=== PATIENT | female | born 1960 | race Caucasian/White ===

== ENCOUNTER → 2016-12-28 | Outpatient (CLI) | payer BC | END | disposition home or self-care (01) | LOC: C.PAPS 14:04 | PROVIDERS: ATTEND Obstetrics & Gynecology | DX: Z01.419 Encounter for gynecological examination (general) (routine) without abnormal findings (principal) ==

== ENCOUNTER → 2017-05-12 | Outpatient (CLI) | payer BC | END | disposition home or self-care (01) | LOC: C.MAMM 09:27 | PROVIDERS: ATTEND Obstetrics & Gynecology | DX: M81.0 Age-related osteoporosis without current pathological fracture (principal); M85.89 Other specified disorders of bone density and structure, multiple sites ==

== ENCOUNTER → 2017-07-06 | Outpatient (CLI) | payer BC ==
--- NOTE | 2017-07-06 14:41 | DIAGNOSTIC IMAGING REPORT ---
Thyroid ultrasonography CLINICAL HISTORY: GOITER, ASYMMETRICAL THYROID COMPARISON STUDY: No previous studies for comparison. FINDINGS: The right lobe of thyroid measures 56 x 15 x 19 mm. There are several tiny hypoechoic thyroid nodules, the largest of which measures 4 mm. The left lobe of thyroid measures 52 x 12 x 17 mm. There are multiple hypoechoic/cystic left lobe nodules, the largest of which measures 6 mm. There is a complex cystic nodule of the isthmus which measures 22 x 10 x 17 mm. In addition, there is an equivocal 9 x 5 mm circumscribed solid right isthmus nodule. IMPRESSION: Multinodular thyroid gland. The largest nodule is a complex cystic nodule of the isthmus measuring 22 x 10 x 17 mm. Electronically signed by: Justin Marino M.D. 07/06/2017 2:40 PM Dictated Date/Time: 07/06/2017 2:37 PM
== END ==
LOC: C.ULTR 14:14

== ENCOUNTER → 2017-07-11 | Outpatient (CLI) | payer BC ==
--- NOTE | 2017-07-11 13:54 | DIAGNOSTIC IMAGING REPORT ---
ULTRASOUND-GUIDED FINE-NEEDLE ASPIRATION OF A THYROID NODULE HISTORY: COMPLEX CYSTIC NODULES COMPARISON: Thyroid ultrasound 07/06/2017. PROCEDURE: Written informed consent was obtained. The neck was prepped and draped in the usual sterile fashion. 1% lidocaine was used for local anesthesia. A total of 1 pass using a 25-gauge needle was made through the 2.2 cm isthmic thyroid nodule under ultrasound guidance. This is followed by near complete drainage of the primarily cystic isthmic nodule with a 22-gauge needle. Specimens were given to the on-site pathologist who determined adequate tissue for diagnosis. The patient tolerated the procedure well. There were no immediate complications. The questionable 9 x 5 mm right isthmic nodule was not identified and was likely artifactual on the prior study. IMPRESSION: Successful ultrasound-guided fine-needle aspiration of an isthmic thyroid nodule. Electronically signed by: Glen Nielsen M.D. 07/11/2017 1:53 PM Dictated Date/Time: 07/11/2017 1:50 PM
== END | disposition home or self-care (01) ==
LOC: C.ULTR 12:34
DX: E04.1 Nontoxic single thyroid nodule (principal)

== ENCOUNTER → 2017-10-18 | Outpatient (CLI) | payer OTHER ==
--- NOTE | 2017-10-19 15:41 | MAMMOGRAPHY REPORT ---
BILATERAL DIGITAL SCREENING MAMMOGRAM TOMOSYNTHESIS WITH CAD: 10/18/2017 CLINICAL HISTORY: Routine screening. TECHNIQUE: Breast tomosynthesis in addition to standard 2D mammography was performed. Current study was also evaluated with a Computer Aided Detection (CAD) system. COMPARISON: Comparison is made to exams dated: 09/07/2016 mammogram, 09/02/2015 mammogram, 08/30/2014 mammogram, 08/29/2013 mammogram, 08/28/2012 mammogram, and 08/16/2011 mammogram - [facility]. BREAST COMPOSITION: The tissue of both breasts is heterogeneously dense, which may obscure small mas ses. FINDINGS: The parenchymal pattern is unchanged. No developing mass, architectural distortion or clus ter of suspicious microcalcifications is seen in either breast. IMPRESSION: ACR BI-RADS CATEGORY 2: BENIGN There is no mammographic evidence of malignancy. A 1 year screening mammogram is recommended. The pa tient will receive written notification of the results. Approximately 10% of breast cancers are not detected with mammography. A negative mammographic report should not delay biopsy if a clinically suggestive mass is present. Josie Gudino M.D. ay/:10/18/2017 16:59:16 Degreasing Solution Mixer: Burak ALSTON(R)(M), [facility] letter sent: Normal 1/2 BI-RADS Code: ACR BI-RADS Category 2: Benign
== END | disposition home or self-care (01) ==
LOC: C.MAMM 16:17
PROVIDERS: ATTEND Obstetrics & Gynecology
DX: Z12.31 Encounter for screening mammogram for malignant neoplasm of breast (principal)

== ENCOUNTER 2023-01-05 19:52 | Observation (INO) ==
--- NOTE | 2023-01-05 20:03 | Emergency Department Note ---
History of Present Illness General Chief complaint: Ankle Pain Stated complaint: FELL DOWN STAIRS, HURT BOTH ANKLES Time Seen by Provider: 01/05/23 20:00 History of Present Illness Maximum Pain Intensity: 7 This 62-year-old female patient presents to the emergency department with her for evaluation of bilateral ankle pain after she fell down 3 steps. She states that she rolled both ankles as she fell down the steps. She then landed on her left hip. However, she denies pain in her hip. She did not hit her head and no LOC. She is not on blood thinners. Unable to bear weight because of the pain. She rates her pain as sharp and 7/10. Denies headache, change in vision, dizziness, or change in her personality. Denies neck or back pain. Denies chest pain, SOB, abdominal pain, nausea, or vomiting. Has taken ibuprofen for the pain 45 min ago. She has a history of osteoporosis. Home Medications Medication Instructions Recorded Confirmed Type Bone Builder 620 mg PO BID 04/21/21 01/05/23 History albuterol sulfate 90 mcg/actuation 1 inh inhalation QID PRN SHORT OF 04/21/21 01/05/23 History aerosol inhaler BREATH ascorbic acid (vitamin C) 100 mg 400 mg PO BID 04/21/21 01/05/23 History tablet (Vitamin C) epinephrine 0.3 mg/0.3 mL 0.3 mg IM Q4H PRN Allergic Reaction 04/21/21 01/05/23 History injection, auto-injector lactobacillus comb no.10 20 20,000 mmu cells PO QAM 04/21/21 01/05/23 History billion cell capsule (Probiotic) magnesium citrate 100 mg tablet 600 mg PO QPM 04/21/21 01/05/23 History multivitamin 1 tab PO QAM 04/21/21 01/05/23 History Vitamin D3 & K 1 drp sublingual QAM 07/29/21 01/05/23 History estradiol 10 mcg vaginal tablet 10 mcg vaginal 2XWK 04/19/22 01/05/23 History (Vagifem) beclomethasone dipropionate 80 1 inh inhalation BID PRN Shortness 01/05/23 01/05/23 History mcg/actuation HFA breath activated Of Breath Or Wheezing aerosol (Qvar RediHaler) Allergies Allergy/AdvReac Type Severity Reaction Status Date / Time corn syrup Allergy Severe *dextrose Verified 01/05/23 23:17 --MIGRAINE/INTESTINAL PROBLEMS/ASTHMA SYMPTOMS latex Allergy Severe Anaphylaxis Verified 01/05/23 23:17 meperidine [From Demerol] Allergy Severe RASH/EXTREME Verified 01/05/23 23:17 MIGRAINE/THROAT CLOSES SOMETIMES morphine Allergy Severe RASH/EXTREME Verified 01/05/23 23:17 MIGRAINE/THROAT CLOSES SOMETIMES oxycodone Allergy Severe RASH/EXTREME Verified 01/05/23 23:17 MIGRAINE/THROAT CLOSES SOMETIMES polyethylene glycol Allergy Severe ANGIO Verified 01/05/23 23:17 EDEMA, BRONCHIAL SPASMS, HIVES [id number] Antimigraine Allergy Severe HIVES/THROAT Verified 01/05/23 23:17 Agents CLOSING dextrose Allergy Intermediate MIGRAINE/INTESTINAL Verified 01/05/23 23:17 PROBLEMS/ASTHMA SYMPTOMS midazolam [From Versed] Allergy Intermediate hives/RASH/ITCHING Verified 01/05/23 23:17 ALL OVER/SLOW TO WAKE UP mold Allergy Intermediate ASTHMA Verified 01/05/23 23:17 ATTACK nickel Allergy Intermediate ITCHING Verified 01/05/23 23:17 egg Allergy Abdominal Verified 01/06/23 05:39 Pain avocado AdvReac Intermediate INTESTINAL Verified 01/05/23 23:17 PROBLEMS fish derived AdvReac Intermediate INTESTINAL Verified 01/05/23 23:17 PROBLEMS soy AdvReac Intermediate INTESTINAL Verified 01/05/23 23:17 PROBLEMS venlafaxine [From Effexor] AdvReac Intermediate TROUBLE Verified 01/05/23 23:17 WALKING RUBBER Allergy Severe ASTHMA Uncoded 01/05/23 23:17 REACTION PLASTIC Allergy Mild SENSITIVE Uncoded 01/05/23 23:17 TO PLASTIC Past Med/Surg History Medical History Asthma LAST USED RESCUE INHALER SPRING 2020 Eczema Food intolerance History of anemia History of depression HSIL (high grade squamous intraepithelial lesion) on Pap smear of cervix Hypoglycemia Migraine Multiple allergies Multiple chemical sensitivity syndrome Osteoporosis OTF III (vulvar intraepithelial neoplasia III) Surgical History Family history of reaction to anesthesia NAUSEA History of anesthesia reaction SEE ALLERGIES/SLOW TO WAKE UP History of bilateral tubal ligation History of colonoscopy History of herniorrhaphy INGUINAL History of skin surgery LOCAL EXCISION VULVA (PRE-CANCEROUS) History of tooth extraction Torticollis REPAIRED X 2 (RT SIDE OF NECK STIFFNESS) Family History Family/Other Breast cancer Mother CHF (congestive heart failure) Macular degeneration Asthma Hypertension Father Atrial fibrillation Prostate cancer Multiple myeloma Asthma Dyslipidemia Sister Asthma Other No significant family history Denies family history of Ovarian cancer Myocardial infarction Colorectal cancer Social History Smoking Status: Never smoker Age Started Using Tobacco: 13; Second Hand Exposure: No; Do You Dip or Chew Tobacco: No; Tobacco Cessation Education Requested by Patient: No Hx Alcohol Use: No Hx Substance Use: No Preferred Language: Cambodian Communication Ability: Effective 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 Physical Exam Vital Signs Vital Signs - 24 hr 01/05/23 19:57 01/06/23 00:00 01/06/23 02:00 Temperature 36.4 C L Temperature Source Temporal Artery Scan Pulse Rate 78 Pulse Rate [Right Finger] 76 74 Respiratory Rate 18 14 14 Respiratory Effort / Characteristics Non-Labored Spontaneous Non-Labored Spontaneous Respiratory Depth Normal Normal Normal Respiratory Pattern Regular Regular Blood Pressure 130/77 Blood Pressure [Right Arm] 144/86 H 132/87 Blood Pressure Mean 94 Blood Pressure Mean [Right Arm] 105 102 Pulse Oximetry 100 98 98 Oxygen Delivery Method Room Air Room Air Room Air Sepsis Recent Fever Within 48 Hours No Sepsis New/Unexplained Change in Mental Status No Sepsis Action Taken by Nursing No Action Required VITALS: Vitals are noted on the nurse's note and reviewed by myself. GENERAL: Non toxic, no acute distress, non-diaphoretic. SKIN: No obvious lacerations or abrasions. Capillary refill <2 sec. EYES: PERRLA. EOMI. Conjunctivae without injection, sclerae without icterus. NOSE: Patent without discharge. MOUTH: Mucous membranes moist. Uvula midline. Airway patent. NECK: Supple without nuchal rigidity. No cervical spine tenderness. Full range of motion of the neck without pain. HEART: Regular rate and rhythm without murmurs gallops or rubs. LUNGS: Clear to auscultation bilaterally without wheezes, rales or rhonchi. No retractions or accessory muscle use. CHEST: No tenderness to palpation. ABDOMEN: Positive bowel sounds x 4. Normal tympanic percussion. Soft, nontender, without masses or organomegaly. Anders sign negative. No guarding or rebound tenderness. No focal RLQ or LLQ tenderness. MUSCULOSKELETAL: Minimal tenderness to the lateral aspect of the left hip, but full range of motion of the left hip with minimal pain. No tenderness with pelvic rocking. The patient has significant edema and tenderness to palpation over the medial and lateral malleolus bilaterally. No tenderness to palpation of the base of the fifth metatarsal on either foot. No tenderness to palpation over the remainder of the bilateral feet. No tenderness to palpation of the bilateral tib-fibs, knees, or femur. No tenderness to palpation of the right hip. No tenderness of the thoracic or lumbar spine. Full range of motion without tenderness to palpation of the bilateral upper extremities. Dorsalis pedis and posterior tibial pulse 2+. NEURO: Patient was alert and oriented to person place and time. Normal sensation to light and sharp touch of the bilateral lower extremities. No focal neurological deficits. Course Administered Medications Ascorbic Acid (Ascorbic Acid 500 Mg Tab) 500 mg PO BID [facility] Stop: 02/05/23 08:59 Last Admin: 01/06/23 07:53 Dose: 500 mg Documented By: HANNAH Ibuprofen (Ibuprofen 200 Mg Tab) 400 mg PO QID PRN PRN Reason: Moderate Pain (Scale 4, 5, 6) Stop: 02/05/23 01:37 Last Admin: 01/06/23 10:16 Dose: 400 mg Documented By: Admin: 01/06/23 02:05 Dose: 400 mg Documented By: MADELEINE Lactobacillus Acidophilus (Advanced Probiotic 1250 Mg Capsule) 2 cap PO QAM [facility] Stop: 02/05/23 08:59 Last Admin: 01/06/23 07:53 Dose: 2 cap Documented By: HANNAH Miscellaneous (Estradiol [Vagifem]: Order Awaiting Action) 1 each N/A DAILY [facility] Stop: 02/05/23 08:59 Last Admin: 01/06/23 08:04 Dose: Not Given Documented By: HANNAH Multivitamins (Multivitamin Tab) 1 tab PO QAM [facility] Stop: 02/05/23 08:59 Last Admin: 01/06/23 07:53 Dose: 1 tab Documented By: HANNAH Discontinued Medications Acetaminophen (Acetaminophen 500 Mg Tab) 500 mg PO NOW STA Stop: 01/05/23 20:12 Last Admin: 01/05/23 20:19 Dose: 500 mg Documented By: SAM Medical Decision Making Differential Diagnosis Differential diagnosis includes fracture, dislocation, subluxation, contusion, intracranial injury, neurologic, as well as other pathologies. Laboratory Data Attestation: I reviewed the patient's lab results. 01/06/23 00:19 01/06/23 00:19 Lab Results 01/05/23 01/06/23 01/06/23 Range/Units 23:10 00:19 00:19 WBC 7.97 (4.8-10.8) K/ul RBC 4.60 (4.20-5.40) M/uL Hgb 13.9 (12.0-16.0) g/dl Hct 40.8 (37.0-47.0) % MCV 88.7 (80.0-100.0) fL MCH 30.2 (25.0-34.0) pg MCHC 34.1 (32.0-36.0) g/dL RDW Std Deviation 42.1 (36.4-46.3) fL RDW Coeff of Zain 12.9 (11.5-14.5) % Plt Count 227 (130-400) K/uL MPV 9.8 (9.4-12.4) fL Immature Gran % (Auto) 0.3 % Neut % (Auto) 75.0 % Lymph % (Auto) 15.2 % [place] % (Auto) 7.4 % Eos % (Auto) 1.6 % Baso % (Auto) 0.5 % Neut # (Auto) 5.98 (1.40-6.50) K/uL Lymph # (Auto) 1.21 (1.2-3.4) K/uL [place] # (Auto) 0.59 (0.11-0.59) K/uL Eos # (Auto) 0.13 (0-0.50) K/uL Baso # (Auto) 0.04 (0-0.2) K/uL Immature Gran # (Auto) 0.02 (0.01-0.20) K/uL Sodium 137 (136-145) mmol/L Potassium TNP Chloride 103 (98-107) mmol/L Carbon Dioxide 25 (21-32) mmol/L Anion Gap 9 (3-11) BUN 21 (6-23) mg/dl Creatinine 0.68 (0.6-1.2) mg/dl Est Cr Clr Drug Dosing 90.4 ml/min Est GFR ( Amer) 107.1 ml/min Est GFR (Non-Af Amer) 92.4 ml/min BUN/Creatinine Ratio 30.9 H (10-20) Glucose 119 H (70-99(Fasting)) mg/dl Calcium 9.2 (8.6-10.3) mg/dl Total Bilirubin 0.5 (0.2-1.0) mg/dl AST TNP ALT 17 (7-52) U/L Alkaline Phosphatase 63 (34-104) U/L Total Protein 6.8 (6.0-8.3) gm/dl Albumin 4.3 (3.4-5.0) gm/dl Globulin 2.5 (2.5-4.0) gm/dl Albumin/Globulin Ratio 1.7 (0.9-2) Urine Color Urine Appearance (Clear) Urine pH (4.5-7.5) Ur Specific [place] (1.000-1.030) Urine Protein (Negative) Urine Glucose (UA) (Negative) Urine Ketones (Negative) Urine Blood (Negative) Urine Nitrite (Negative) Urine Bilirubin (Negative) Urine Urobilinogen (Negative) Ur Leukocyte Esterase (Negative) Urine WBC (Auto) (0-5) /hpf Urine RBC (Auto) (0-4) /hpf U Hyaline Cast (Auto) (0-5) /lpf U Epithel Cells (Auto) (0-5) /lpf Urine Bacteria (Auto) (Negative) SARS-CoV-2, RNA, NAAT NEGATIVE (NEGATIVE) 01/06/23 01/06/23 Range/Units 01:30 02:15 WBC (4.8-10.8) K/ul RBC (4.20-5.40) M/uL Hgb (12.0-16.0) g/dl Hct (37.0-47.0) % MCV (80.0-100.0) fL MCH (25.0-34.0) pg MCHC (32.0-36.0) g/dL RDW Std Deviation (36.4-46.3) fL RDW Coeff of Zain (11.5-14.5) % Plt Count (130-400) K/uL MPV (9.4-12.4) fL Immature Gran % (Auto) % Neut % (Auto) % Lymph % (Auto) % [place] % (Auto) % Eos % (Auto) % Baso % (Auto) % Neut # (Auto) (1.40-6.50) K/uL Lymph # (Auto) (1.2-3.4) K/uL [place] # (Auto) (0.11-0.59) K/uL Eos # (Auto) (0-0.50) K/uL Baso # (Auto) (0-0.2) K/uL Immature Gran # (Auto) (0.01-0.20) K/uL Sodium (136-145) mmol/L Potassium 3.9 Chloride (98-107) mmol/L Carbon Dioxide (21-32) mmol/L Anion Gap (3-11) BUN (6-23) mg/dl Creatinine (0.6-1.2) mg/dl Est Cr Clr Drug Dosing ml/min Est GFR ( Amer) ml/min Est GFR (Non-Af Amer) ml/min BUN/Creatinine Ratio (10-20) Glucose (70-99(Fasting)) mg/dl Calcium (8.6-10.3) mg/dl Total Bilirubin (0.2-1.0) mg/dl AST 17 ALT (7-52) U/L Alkaline Phosphatase (34-104) U/L Total Protein (6.0-8.3) gm/dl Albumin (3.4-5.0) gm/dl Globulin (2.5-4.0) gm/dl Albumin/Globulin Ratio (0.9-2) Urine Color Yellow Urine Appearance Clear (Clear) Urine pH 5.5 (4.5-7.5) Ur Specific [place] 1.006 (1.000-1.030) Urine Protein Negative (Negative) Urine Glucose (UA) Negative (Negative) Urine Ketones Negative (Negative) Urine Blood Negative (Negative) Urine Nitrite Negative (Negative) Urine Bilirubin Negative (Negative) Urine Urobilinogen Negative (Negative) Ur Leukocyte Esterase Trace H (Negative) Urine WBC (Auto) 1-5 (0-5) /hpf Urine RBC (Auto) 0-4 (0-4) /hpf U Hyaline Cast (Auto) 0 (0-5) /lpf U Epithel Cells (Auto) 5-10 H (0-5) /lpf Urine Bacteria (Auto) Negative (Negative) SARS-CoV-2, RNA, NAAT (NEGATIVE) Imaging Data Radiologist's Impression: Ankle X-Ray 01/05/23 20:10 LEFT ANKLE 3 VIEWS CLINICAL HISTORY: Left ankle injury. FINDINGS: 3 views of the left ankle are obtained. No prior studies are available for comparison at the time of dictation. The skeletal structures are osteopenic. There is a mildly displaced horizontal fracture through the lateral malleolus with overlying soft tissue edema. An avulsion fracture is see along the anterior aspect of the tibial plafond. No additional acute fracture is identified. The ankle mortise is maintained. There is a joint effusion. A large plantar heel spur is noted. IMPRESSION: Distal tibial and fibular fractures as above with overlying soft tissue edema and associated joint effusion. Electronically signed by: Dereck Castaneda M.D. 01/05/2023 9:11 PM Ankle X-Ray 01/05/23 20:10 RIGHT ANKLE 3 VIEWS CLINICAL HISTORY: Trauma. FINDINGS: 3 views of the right ankle are obtained. No prior studies are available for comparison at the time of dictation. The skeletal structures are osteopenic. There is a mildly displaced spiral fracture of the distal fibula. Overlying soft tissue edema is noted. No additional acute fracture is seen at the ankle joint. The ankle mortise is intact. There is a joint effusion and overlying soft tissue edema. A large plantar heel spur is noted. IMPRESSION: Distal fibular fracture as above. Electronically signed by: Dereck Castaneda M.D. 01/05/2023 9:12 PM Hip/Pelvis X-Ray 01/05/23 20:10 SINGLE VIEW PELVIS; 2 VIEWS LEFT HIP CLINICAL HISTORY: Trauma. FINDINGS: An AP supine view of the pelvis with AP and frog-leg views of the left hip are obtained. No prior studies are available for comparison at the time of dictation. The skeletal structures are osteopenic. There is no radiographic evidence of acute fracture involving the hips or bony pelvis. Minimal degenerative change is seen in the hips. There is degenerative sclerosis within the sacroiliac joints and pubic symphysis. The overlying soft tissues are within normal limits. Phleboliths are noted in the pelvis. Moderate fecal retention is noted throughout the imaged colon. IMPRESSION: No acute bony abnormality is identified. Electronically signed by: Dereck Castaneda M.D. 01/05/2023 9:04 PM MDM Narrative I examined the patient. The patient was given Tylenol 500 mg p.o. for pain since she has multiple chemical sensitivity syndrome and does not do well with most pain medications or high doses of medication. She had already taken ibuprofen at home prior to arrival. X-rays were interpreted by myself and read by radiology as above. X-rays of the left hip and pelvis were negative for acute fracture or dislocation. X-rays of the right ankle showed a mildly displaced spiral fracture of the distal fibula. X-rays of the left ankle showed a mildly displaced horizontal fracture through the lateral malleolus with overlying soft tissue edema as well as an avulsion fracture along the anterior aspect of the tibial plafond. Definitive fracture care performed by myself. The patient wanted to attempt to be discharged home. Therefore, a high-top fracture boot was placed on the right lower extremity under my direction and a posterior and sugar-tong Ortho-Glass splint was placed on the left lower extremity under my direction. Neurovascular status was rechecked and intact. The patient is unable to manage crutches due to her age and balance concerns. We attempted a walker with light weightbearing on the right lower extremity, but the patient was unable to safely use the walker and admitted to increased pain with any weightbearing on the right lower extremity. I spoke with case management and we were unable to get a wheelchair for home tonight. The patient and her also state that they have no one that can come help them at home to get her into the house or ambulate around the house. The patient does have stairs to get into the house as well as stairs at home. Therefore, the patient is not safe to be discharged home when she is unable to ambulate with available options. I spoke with the on-call hospitalist who agreed to admit the patient for further management. Please refer to their dictation for further details. An IV lock was placed and labs were drawn. CBC was normal. CMP with a glucose of 119, but otherwise unremarkable. COVID was negative. The patient was admitted in stable condition. Impression & Plan Fracture of tibia with fibula, left, closed, Fracture of fibula, distal, right, closed, Osteoporosis Discharge Plan Visit Data Chief Complaint: Ankle Pain Stated Complaint: FELL DOWN STAIRS, HURT BOTH ANKLES ED Provider: Dereck Carpenter ED Midlevel Provider: Mitali Ruiz Discharge Problem: Fracture of tibia with fibula, left, closed, Fracture of fibula, distal, right, closed, Osteoporosis Patient Disposition: Admitted As Inpatient Condition: Good Discharge Instructions Interventions: ED Discharge Assessment Last Done: 01/06/23 04:13
[2023-01-05] MEDS ORDERED: ACETAMINOPHEN 500 MG TAB PO STA (20:11)
--- NOTE | 2023-01-05 21:05 | XRay Report ---
SINGLE VIEW PELVIS; 2 VIEWS LEFT HIP CLINICAL HISTORY: Trauma. FINDINGS: An AP supine view of the pelvis with AP and frog-leg views of the left hip are obtained. No prior studies are available for comparison at the time of dictation. The skeletal structures are ost eopenic. There is no radiographic evidence of acute fracture involving the hips or bony pelvis. Minim al degenerative change is seen in the hips. There is degenerative sclerosis within the sacroiliac praveen nts and pubic symphysis. The overlying soft tissues are within normal limits. Phleboliths are noted i n the pelvis. Moderate fecal retention is noted throughout the imaged colon. IMPRESSION: No acute bony abnormality is identified. Electronically signed by: Dereck Castaneda M.D. 01/05/2023 9:04 PM
--- NOTE | 2023-01-05 21:12 | XRay Report ---
LEFT ANKLE 3 VIEWS CLINICAL HISTORY: Left ankle injury. FINDINGS: 3 views of the left ankle are obtained. No prior studies are available for comparison at th e time of dictation. The skeletal structures are osteopenic. There is a mildly displaced horizontal f racture through the lateral malleolus with overlying soft tissue edema. An avulsion fracture is see a long the anterior aspect of the tibial plafond. No additional acute fracture is identified. The ankle mortise is maintained. There is a joint effusion. A large plantar heel spur is noted. IMPRESSION: Distal tibial and fibular fractures as above with overlying soft tissue edema and associ ated joint effusion. Electronically signed by: Dereck Castandea M.D. 01/05/2023 9:11 PM
--- NOTE | 2023-01-05 21:14 | XRay Report ---
RIGHT ANKLE 3 VIEWS CLINICAL HISTORY: Trauma. FINDINGS: 3 views of the right ankle are obtained. No prior studies are available for comparison at t he time of dictation. The skeletal structures are osteopenic. There is a mildly displaced spiral frac ture of the distal fibula. Overlying soft tissue edema is noted. No additional acute fracture is seen at the ankle joint. The ankle mortise is intact. There is a joint effusion and overlying soft tissue edema. A large plantar heel spur is noted. IMPRESSION: Distal fibular fracture as above. Electronically signed by: Dereck Castaneda M.D. 01/05/2023 9:12 PM
[2023-01-06 00:45] LABS: Basophils # (auto) 0.04 K/uL (0-0.2); Basophils % (auto) 0.5 %; Eosinophils # (auto) 0.13 K/uL (0-0.50); Eosinophils % (auto) 1.6 %; Hematocrit (blood only) 40.8 % (37.0-47.0); Hemoglobin 13.9 g/dl (12.0-16.0); Immature Granulocytes # (auto) 0.02 K/uL (0.01-0.20); Immature Granulocytes % (auto) 0.3 %; Lymphocytes # (auto) 1.21 K/uL (1.2-3.4); Lymphocytes % (auto) 15.2 %; Mean Corpuscular Hemoglobin 30.2 pg (25.0-34.0); Mean Corpuscular Hgb Conc 34.1 g/dL (32.0-36.0); Mean Corpuscular Volume 88.7 fL (80.0-100.0); Mean Platelet Volume 9.8 fL (9.4-12.4); Monocytes # (auto) 0.59 K/uL (0.11-0.59); Monocytes % (auto) 7.4 %; Neutrophils # (auto) 5.98 K/uL (1.40-6.50); Platelet Count 227 K/uL (130-400); RDW Coefficient of Variation 12.9 % (11.5-14.5); RDW Standard Deviation 42.1 fL (36.4-46.3); White Blood Count 7.97 K/ul (4.8-10.8)
[2023-01-06 01:22] LABS: Alanine Aminotransferase 17 U/L (7-52); Albumin Globulin Ratio 1.7 (0.9-2); Albumin Level 4.3 gm/dl (3.4-5.0); Alkaline Phosphatase 63 U/L (34-104); Anion Gap 9 (3-11); BUN Creatinine Ratio 30.9 (10-20); Bilirubin,Total 0.5 mg/dl (0.2-1.0); Blood Urea Nitrogen 21 mg/dl (6-23); Calcium 9.2 mg/dl (8.6-10.3); Carbon Dioxide 25 mmol/L (21-32); Chloride 103 mmol/L (98-107); Creatinine Clr Calc Pharmacy 90.4 ml/min; Est GFR (African American) 107.1 ml/min; Est GFR (Non-African American) 92.4 ml/min; Globulin 2.5 gm/dl (2.5-4.0); Glucose 119 mg/dl (70-99(Fasting)); Sodium 137 mmol/L (136-145); Total Protein 6.8 gm/dl (6.0-8.3)
[2023-01-06 02:00] LABS: Potassium 3.9 mmol/L (3.5-5.1)
[2023-01-06] MEDS: IBUPROFEN 200 MG TAB PO PRN ×3 (02:05→17:28)
--- NOTE | 2023-01-06 02:17 | History & Physical Report ---
Date of Service January 06, 2023 Assessment & Plan (1) Fracture of tibia with fibula, left, closed: (2) Fracture of fibula, distal, right, closed: (3) Osteoporosis: (4) Multiple chemical sensitivity syndrome: (5) Asthma: Plan Closed fracture of right distal fibula/closed fracture of left distal fibula/fibula- Status post mechanical fall We will consult orthopedic surgery, not anticipating surgery shared services manager may need to help with determining what kind of services patient may be qualified for at home Acetaminophen 650 mg by mouth every 6 hours as needed for mild pain or fever Ibuprofen 400 mg p.o. 4 times daily as needed for moderate pain Patient has developed hives to morphine in the past, will therefore limit any narcotic agents at this point We will consult Dr. Biswas in the morning, to see if she might tolerate something like tramadol for more severe pain Anticipate patient to have significant issues with ambulation at home with bilateral ankle fractures Multiple chemical sensitivity syndrome- Would attempt to call Dr. Biswas's office during the day to get recommendations regarding possible pain medications patient may be able to use with history of hives to morphine History of Present Illness Chief Complaint: The patient presents to the emergency department with bilateral ankle pain after a mechanical fall where she fell down 3 steps and rolled her ankle that she landed. The patient denies any previous symptoms leading up to the fall, stating that she misjudged where she was on the steps, being close to the edge of the steps than she thought, and stepped over into a space where there were no steps Primary Care Provider: Bruna Amor MD The patient is a 62-year-old female with past medical history including HSIL, osteoporosis, OTF 3, asthma, and multiple chemical sensitivity syndrome. The patient presents to the emergency department due to a mechanical fall in which she misjudged where she was on steps, and stepped off into a space where there were no steps, dropping 3 steps in height rolling her ankles and sustaining immediate pain bilateral ankles. X-rays in the emergency department revealed a left ankle distal tib/fib fracture, and right ankle distal fib fracture. Allergies Allergy/AdvReac Type Severity Reaction Status Date / Time corn syrup Allergy Severe *dextrose Verified 01/05/23 23:17 --MIGRAINE/INTESTINAL PROBLEMS/ASTHMA SYMPTOMS latex Allergy Severe Anaphylaxis Verified 01/05/23 23:17 meperidine [From Demerol] Allergy Severe RASH/EXTREME Verified 01/05/23 23:17 MIGRAINE/THROAT CLOSES SOMETIMES morphine Allergy Severe RASH/EXTREME Verified 01/05/23 23:17 MIGRAINE/THROAT CLOSES SOMETIMES oxycodone Allergy Severe RASH/EXTREME Verified 01/05/23 23:17 MIGRAINE/THROAT CLOSES SOMETIMES polyethylene glycol Allergy Severe ANGIO Verified 01/05/23 23:17 EDEMA, BRONCHIAL SPASMS, HIVES [id number] Antimigraine Allergy Severe HIVES/THROAT Verified 01/05/23 23:17 Agents CLOSING dextrose Allergy Intermediate MIGRAINE/INTESTINAL Verified 01/05/23 23:17 PROBLEMS/ASTHMA SYMPTOMS midazolam [From Versed] Allergy Intermediate hives/RASH/ITCHING Verified 01/05/23 23:17 ALL OVER/SLOW TO WAKE UP mold Allergy Intermediate ASTHMA Verified 01/05/23 23:17 ATTACK nickel Allergy Intermediate ITCHING Verified 01/05/23 23:17 avocado AdvReac Intermediate INTESTINAL Verified 01/05/23 23:17 PROBLEMS fish derived AdvReac Intermediate INTESTINAL Verified 01/05/23 23:17 PROBLEMS soy AdvReac Intermediate INTESTINAL Verified 01/05/23 23:17 PROBLEMS venlafaxine [From Effexor] AdvReac Intermediate TROUBLE Verified 01/05/23 23:17 WALKING RUBBER Allergy Severe ASTHMA Uncoded 01/05/23 23:17 REACTION PLASTIC Allergy Mild SENSITIVE Uncoded 01/05/23 23:17 TO PLASTIC Home Medications Medication Instructions Recorded Confirmed Type Bone Builder 620 mg PO BID 04/21/21 01/05/23 History albuterol sulfate 90 mcg/actuation 1 inh inhalation QID PRN SHORT OF 04/21/21 01/05/23 History aerosol inhaler BREATH ascorbic acid (vitamin C) 100 mg 400 mg PO BID 04/21/21 01/05/23 History tablet (Vitamin C) epinephrine 0.3 mg/0.3 mL 0.3 mg IM Q4H PRN Allergic Reaction 04/21/21 01/05/23 History injection, auto-injector lactobacillus comb no.10 20 20,000 mmu cells PO QAM 04/21/21 01/05/23 History billion cell capsule (Probiotic) magnesium citrate 100 mg tablet 600 mg PO QPM 04/21/21 01/05/23 History multivitamin 1 tab PO QAM 04/21/21 01/05/23 History Vitamin D3 & K 1 drp sublingual QAM 07/29/21 01/05/23 History estradiol 10 mcg vaginal tablet 10 mcg vaginal 2XWK 04/19/22 01/05/23 History (Vagifem) beclomethasone dipropionate 80 1 inh inhalation BID PRN Shortness 01/05/23 01/05/23 History mcg/actuation HFA breath activated Of Breath Or Wheezing aerosol (Qvar RediHaler) Past Med/Surg History Medical History Asthma LAST USED RESCUE INHALER SPRING 2020 Eczema Food intolerance History of anemia History of depression HSIL (high grade squamous intraepithelial lesion) on Pap smear of cervix Hypoglycemia Migraine Multiple allergies Multiple chemical sensitivity syndrome Osteoporosis OTF III (vulvar intraepithelial neoplasia III) Surgical History Family history of reaction to anesthesia NAUSEA History of anesthesia reaction SEE ALLERGIES/SLOW TO WAKE UP History of bilateral tubal ligation History of colonoscopy History of herniorrhaphy INGUINAL History of skin surgery LOCAL EXCISION VULVA (PRE-CANCEROUS) History of tooth extraction Torticollis REPAIRED X 2 (RT SIDE OF NECK STIFFNESS) Family History Family/Other Breast cancer Mother CHF (congestive heart failure) Macular degeneration Asthma Hypertension Father Atrial fibrillation Prostate cancer Multiple myeloma Asthma Dyslipidemia Sister Asthma Other No significant family history Denies family history of Ovarian cancer Myocardial infarction Colorectal cancer Social History Smoking Status: Former smoker Age Started Using Tobacco: 13; Second Hand Exposure: No; Hx Alcohol Use: No Hx Substance Use: No Preferred Language: [place] Communication Ability: Effective Labor Economics Teacher Required: No Beliefs That Will Affect Care: None marital status: Current Living Situation: Spouse current occupational status: retired Feels Safe at Home: Yes Childhood Exposure to Second-Hand Smoke: No Dental Care, Regularly: Yes Physical Activity Frequency: 3-4 Times per Week Seatbelt Use: always Sunscreen Use: Yes Assistive Devices: Glasses Review of Systems Review of Systems: The patient denies chest pain, palpitations, shortness of breath, dyspnea on exertion, cough, lower extremity swelling, sore throat, fevers, chills, sweats, weight change, fatigue, nausea, vomiting, diarrhea , constipation, abdominal pain, pelvic pain, blood in urine or stool, dysuria, urinary frequency or urgency, lightheadedness, dizziness, headache, memory loss, loss of consciousness, rash, abnormal bruising or bleeding, imbalance, focal or generalized weakness, numbness or tingling in arms, generalized arthralgias or myalgias, neck pain, or night sweats. The review of systems is otherwise negative other than for that already noted above, and at least 10 systems have been reviewed. Physical Exam Physical Exam: The patient is awake, alert and oriented 3, well developed and well nourished, normocephalic and atraumatic, lying in bed and in no acute distress. HEENT--PERRL, EOMI, mucous membranes and oropharynx dry. Neck--supple. No JVD. No bruits. Thyroid normal, trachea midline, no adenopathy. Heart--normal S1 and S2. No murmurs, rubs or gallops. Lungs--clear bilaterally, no respiratory distress, no accessory muscle use. Abdomen--normal bowel sounds and soft. Nontender. Nondistended, no hernias or masses, no organomegaly. Extremities--no cyanosis or clubbing. No edema. Dermatologic--normal skin turgor, normal color, no abnormal lymph nodes, no rash. Neurologic--cranial nerves II through XII grossly intact. Rheumatologic--lower extremity exam limited due to wrapping for stabilization Psychiatric--normal affect. Results & Data Results & Data Vital Signs (Past 12 Hours) Vital Signs Temp Pulse Resp BP Pulse Ox O2 Del Method 01/05/23 19:57 36.4 C L 78 18 130/77 100 Room Air Laboratory Results Laboratory Results WBC 7.97 K/ul (4.8-10.8) 01/06/23 00:19 RBC 4.60 M/uL (4.20-5.40) 01/06/23 00:19 Hgb 13.9 g/dl (12.0-16.0) 01/06/23 00:19 Hct 40.8 % (37.0-47.0) 01/06/23 00:19 MCV 88.7 fL (80.0-100.0) 01/06/23 00:19 MCH 30.2 pg (25.0-34.0) 01/06/23 00: MCHC 34.1 g/dL (32.0-36.0) 01/06/23 00:19 RDW Std Deviation 42.1 fL (36.4-46.3) 01/06/23 00: RDW Coeff of Zain 12.9 % (11.5-14.5) 01/06/23 00:19 Plt Count 227 K/uL (130-400) 01/06/23 00:19 MPV 9.8 fL (9.4-12.4) 01/06/23 00:19 Immature Gran % (Auto) 0.3 % 01/06/23 00: Neut % (Auto) 75.0 % 01/06/23 00:19 Lymph % (Auto) 15.2 % 01/06/23 00:19 [place] % (Auto) 7.4 % 01/06/23 00:19 Eos % (Auto) 1.6 % 01/06/23 00:19 Baso % (Auto) 0.5 % 01/06/23 00:19 Neut # (Auto) 5.98 K/uL (1.40-6.50) 01/06/23 00:19 Lymph # (Auto) 1.21 K/uL (1.2-3.4) 01/06/23 00:19 [place] # (Auto) 0.59 K/uL (0.11-0.59) 01/06/23 00:19 Eos # (Auto) 0.13 K/uL (0-0.50) 01/06/23 00:19 Baso # (Auto) 0.04 K/uL (0-0.2) 01/06/23 00:19 Immature Gran # (Auto) 0.02 K/uL (0.01-0.20) 01/06/23 00:19 Sodium 137 mmol/L (136-145) 01/06/23 00:19 Potassium 3.9 mmol/L (3.5-5.1) 01/06/23 01:30 Chloride 103 mmol/L (98-107) 01/06/23 00:19 Carbon Dioxide 25 mmol/L (21-32) 01/06/23 00:19 Anion Gap 9 (3-11) 01/06/23 00:19 BUN 21 mg/dl (6-23) 01/06/23 00:19 Creatinine 0.68 mg/dl (0.6-1.2) 01/06/23 00:19 Est Cr Clr Drug Dosing 90.4 ml/min 01/06/23 00:19 Est GFR ( Amer) 107.1 ml/min 01/06/23 00:19 Est GFR (Non-Af Amer) 92.4 ml/min 01/06/23 00:19 BUN/Creatinine Ratio 30.9 (10-20) H 01/06/23 00:19 Glucose 119 mg/dl (70-99(Fasting)) H 01/06/23 00:19 Calcium 9.2 mg/dl (8.6-10.3) 01/06/23 00:19 Total Bilirubin 0.5 mg/dl (0.2-1.0) 01/06/23 00:19 AST 17 U/L (13-39) 01/06/23 01:30 ALT 17 U/L (7-52) 01/06/23 00:19 Alkaline Phosphatase 63 U/L (34-104) 01/06/23 00:19 Total Protein 6.8 gm/dl (6.0-8.3) 01/06/23 00:19 Albumin 4.3 gm/dl (3.4-5.0) 01/06/23 00:19 Globulin 2.5 gm/dl (2.5-4.0) 01/06/23 00:19 Albumin/Globulin Ratio 1.7 (0.9-2) 01/06/23 00:19 Urine Color Yellow 01/06/23 02:15 Urine Appearance Clear (Clear) 01/06/23 02:15 Urine pH 5.5 (4.5-7.5) 01/06/23 02:15 Ur Specific [place] 1.006 (1.000-1.030) 01/06/23 02:15 Urine Protein Negative (Negative) 01/06/23 02:15 Urine Glucose (UA) Negative (Negative) 01/06/23 02:15 Urine Ketones Negative (Negative) 01/06/23 02:15 Urine Blood Negative (Negative) 01/06/23 02:15 Urine Nitrite Negative (Negative) 01/06/23 02:15 Urine Bilirubin Negative (Negative) 01/06/23 02:15 Urine Urobilinogen Negative (Negative) 01/06/23 02:15 Ur Leukocyte Esterase Trace (Negative) H 01/06/23 02:15 Urine WBC (Auto) 1-5 /hpf (0-5) 01/06/23 02:15 Urine RBC (Auto) 0-4 /hpf (0-4) 01/06/23 02:15 U Hyaline Cast (Auto) 0 /lpf (0-5) 01/06/23 02:15 U Epithel Cells (Auto) 5-10 /lpf (0-5) H 01/06/23 02:15 Urine Bacteria (Auto) Negative (Negative) 01/06/23 02:15 SARS-CoV-2, RNA, NAAT NEGATIVE (NEGATIVE) 01/05/23 23:10 Impressions Ankle X-Ray 01/05/23 20:10 RIGHT ANKLE 3 VIEWS CLINICAL HISTORY: Trauma. FINDINGS: 3 views of the right ankle are obtained. No prior studies are available for comparison at the time of dictation. The skeletal structures are osteopenic. There is a mildly displaced spiral fracture of the distal fibula. O verlying soft tissue edema is noted. No additional acute fracture is seen at the ankle joint. The ankle mortise is intact. There is a joint effusion and overlying soft tissue edema. A large plantar heel spur is noted. IMPRESSION: Distal fibular fracture as above. Electronically signed by: Dereck Castaneda M.D. 01/05/2023 9:12 PM Hip/Pelvis X-Ray 01/05/23 20:10 SINGLE VIEW PELVIS; 2 VIEWS LEFT HIP CLINICAL HISTORY: Trauma. FINDINGS: An AP supine view of the pelvis with AP and frog-leg views of the left hip are obtained. No prior studies are available for comparison at the time of dictation. The skeletal structures are osteopenic. There is no radiographic evidence of acute fracture involving the hips or bony pelvis. Minimal degenerative change is seen in the hips. There is degenerative sclerosis within the sacroiliac joints and pubic symphysis. The overlying soft tissues are within normal limits. Phleboliths are noted in the pelvis. Moderate fecal retention is noted throughout the imaged colon. IMPRESSION: No acute bony abnormality is identified. Electronically signed by: Dereck Castaneda M.D. 01/05/2023 9:04 PM Code Status & VTE Plan Code Status Full code VTE Prophylaxis Plan VTE Prophylaxis will be ordered: Yes PG Care Time/CCT Total # of Minutes Spent Total Time Spent with Patient: Total time spent is greater than 50% in coordination of care (as documented) at patient's floor/unit and/or counseling patient: Coding Level of Care Code 64754 INT INP/OBS CARE 2/55MIN Diagnoses Fracture of tibia with fibula, left, closed S82.202A; S82.402A Fracture of fibula, distal, right, closed S82.831A Osteoporosis M81.0 Multiple chemical sensitivity syndrome T78.40XA Asthma J45.909
[2023-01-06 02:34] LABS: Appearance Urine Clear (Clear); Bacteria Urine Automated Negative (Negative); Bilirubin Urine Negative (Negative); Blood Urine Negative (Negative); Cast Urine Automated 0 /lpf (0-5); Color Urine Yellow; Glucose Urine UA Negative (Negative); Ketones Urine Negative (Negative); Leukocyte Esterase Urine Trace (Negative); Nitrite Urine Negative (Negative); Protein Urine Negative (Negative); RBC Urine Automated 0-4 /hpf (0-4); Specific Gravity Urine 1.006 (1.000-1.030); Urobilinogen Urine Negative (Negative); pH Urine 5.5 (4.5-7.5)
[2023-01-06] MEDS ORDERED: ALBUTEROL HFA 8 GM INHALER INH PRN (04:24)
[2023-01-06] MEDS ORDERED: FLUTICASONE FUROATE 100MCG 14 PUFFS/INHALER INH PRN (04:36)
[2023-01-06] MEDS: ADVANCED PROBIOTIC 1250 MG CAPSULE PO SCH (07:53)
[2023-01-06] MEDS: MULTIVITAMIN TAB PO SCH (07:53)
[2023-01-06] MEDS: ASCORBIC ACID 500 MG TAB PO SCH ×2 (07:53→21:45)
--- NOTE | 2023-01-06 08:30 | Hospitalist Progress Note ---
Date of Service January 06, 2023 Assessment & Plan (1) Fracture of tibia with fibula, left, closed: Plan: Closed fracture of right distal fibula/closed fracture of left distal fibula/fibula- Status post mechanical fall Consult placed with orthopedic surgery and recommend - Splint for initial treatment and heel touch weightbearing on the left lower extremity - Follow-up with an orthopedic surgeon within 1 to 2 weeks from discharge for repeat x-rays of both ankles. Likely, the left lower extremity can be transition to a controlled active motion boot as well at follow-up.. vice president client services may need to help with determining what kind of services patient may be qualified for at home Acetaminophen 650 mg by mouth every 6 hours as needed for mild pain or fever Ibuprofen 400 mg p.o. 4 times daily as needed for moderate pain I have tiger messaged Dr. Biswas this morning, to see if she might tolerate something like tramadol for more severe pain Patient seems to be stable with just the tylenol and IBU at this time PT/OT to evaluate prior to discharge (2) Fracture of fibula, distal, right, closed: Plan: Closed fracture of right distal fibula/closed fracture of left distal fibula/fibula- Status post mechanical fall Consult placed with orthopedic surgery - recommended - Weight-bear as tolerated with a controlled active motion boot on the right - PT /OT evaluation before discharge vice president client services may need to help with determining what kind of services patient may be qualified for at home Acetaminophen 650 mg by mouth every 6 hours as needed for mild pain or fever Ibuprofen 400 mg p.o. 4 times daily as needed for moderate pain I have tiger messaged Dr. Biswas this morning, to see if she might tolerate something like tramadol for more severe pain Patient seems to be stable with just the tylenol and IBU at this bertin (3) Osteoporosis: Plan: - Diagnosed in 2014, not currently on any medications 2/2 multiple chemical sensitivity syndrome - Last DXA 04/2021 - Lowest T score 3.1 L spine - Contiue calcium/vitamin D and regular weight bearing exercises, when fractures healed (4) Multiple chemical sensitivity syndrome: Plan: - Patient follows with Dr Biswas - messaged Dr Biswas on [place] regarding possible options to manage patient's pain (5) Asthma: Plan: - stable - Continue ICS Qvar inhaler, and prn albuterol (6) OTF III (vulvar intraepithelial neoplasia III): Plan: Patient follows with [facility] oncology Dr Mendoza 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 She states she has some right ankle discomfort but overall is doing well. She states she feels she has a high pain tolerance. Review of Systems Review of Systems: Denies chest pain, palpitations,SOB, dyspnea, cough, lower extremity swelling, cough/congestion, fevers, chills, sweats, weight change, fatigue, nausea, vomiting, diarrhea , constipation, abdominal pain, pelvic pain, blood in urine or stool, dysuria, urinary frequency or urgency, lightheadedness, dizziness, headache, memory loss, loss of consciousness, rash, abnormal bruising or bleeding, imbalance, focal or generalized weakness, numbness or tingling in arms, generalized arthralgias or myalgias, neck pain, or night sweats. The review of systems is otherwise negative unless stated + above, and at least 10 systems have been reviewed. Physical Exam Constitutional: WD/WN, vitals as above Neck: trachea midline, no thyromegaly Respiratory: normal respiratory effort, lungs clear to auscultation Cardiovascular: RRR, no murmur, no edema Gastrointestinal (Abdomen): normal bowel sounds, soft, nontender, no hepatosplenomegaly Musculoskeletal: boot on right lower leg and splint and RENNY on LLE ice applied bilaterally Skin: intact capillary refill bilateral toes, intact sensation toes Neurologic: PERRL, EOMI, accommodation nl, no face palsy, no dysarthria Psychiatric: A+Ox3, euthymic affect Results & Data Results & Data Vital Signs (Past 12 Hours) Vital Signs Temp Pulse Resp BP Pulse Ox O2 Del Method 01/06/23 07:40 36.6 C 76 16 134/86 99 Room Air 01/06/23 04:24 36.7 C 71 16 142/82 H 99 Room Air 01/06/23 02:00 74 14 132/87 98 Room Air 01/06/23 00:00 76 14 144/86 H 98 Room Air 01/06/23 04:09 79 16 129/75 98 Room Air Laboratory Results Abnormal lab results 01/06/23 01/06/23 Range/Units 00:19 02:15 BUN/Creatinine Ratio 30.9 H (10-20) Glucose 119 H (70-99(Fasting)) mg/dl Ur Leukocyte Esterase Trace H (Negative) U Epithel Cells (Auto) 5-10 H (0-5) /lpf Diagnostic Findings Ankle X-Ray 01/05/23 20:10 LEFT ANKLE 3 VIEWS CLINICAL HISTORY: Left ankle injury. FINDINGS: 3 views of the left ankle are obtained. No prior studies are available for comparison at the time of dictation. The skeletal structures are osteopenic. There is a mildly displaced horizontal fracture through the lateral malleolus with overlying soft tissue edema. An avulsion fracture is see along the anterior aspect of the tibial plafond. No additional acute fracture is identified. The ankle mortise is maintained. There is a joint effusion. A large plantar heel spur is noted. IMPRESSION: Distal tibial and fibular fractures as above with overlying soft tissue edema and associated joint effusion. Electronically signed by: Dereck Castaneda M.D. 01/05/2023 9:11 PM Ankle X-Ray 01/05/23 20:10 RIGHT ANKLE 3 VIEWS CLINICAL HISTORY: Trauma. FINDINGS: 3 views of the right ankle are obtained. No prior studies are available for comparison at the time of dictation. The skeletal structures are osteopenic. There is a mildly displaced spiral fracture of the distal fibula. Overlying soft tissue edema is noted. No additional acute fracture is seen at the ankle joint. The ankle mortise is intact. There is a joint effusion and o verlying soft tissue edema. A large plantar heel spur is noted. IMPRESSION: Distal fibular fracture as above. Electronically signed by: Dereck Castaneda M.D. 01/05/2023 9:12 PM Hip/Pelvis X-Ray 01/05/23 20:10 SINGLE VIEW PELVIS; 2 VIEWS LEFT HIP CLINICAL HISTORY: Trauma. FINDINGS: An AP supine view of the pelvis with AP and frog-leg views of the left hip are obtained. No prior studies are available for comparison at the time of dictation. The skeletal structures are osteopenic. There is no radiographic evidence of acute fracture involving the hips or bony pelvis. Minimal degenerative change is seen in the hips. There is degenerative sclerosis within the sacroiliac joints and pubic symphysis. The overlying soft tissues are within normal limits. Phleboliths are noted in the pelvis. Moderate fecal retention is noted throughout the imaged colon. IMPRESSION: No acute bony abnormality is identified. Electronically signed by: Dereck Castaneda M.D. 01/05/2023 9:04 PM PG Care Time/CCT Total # of Minutes Spent Total Time Spent with Patient: Total time spent is greater than 50% in coordination of care (as documented) at patient's floor/unit and/or counseling patient: Coding Level of Care Code 26397 SUB INP/OBS CARE 2/35MIN Diagnoses Fracture of tibia with fibula, left, closed S82.202A; S82.402A Fracture of fibula, distal, right, closed S82.831A Osteoporosis M81.0 Multiple chemical sensitivity syndrome T78.40XA Asthma J45.909 OTF III (vulvar intraepithelial neoplasia III) D07.1
[2023-01-06] MEDS ORDERED: BONE BUILDER PO SCH (09:00)
[2023-01-06] MEDS ORDERED: [UNRECOGNIZED DRUG - MIXTURE] SL SCH (09:00)
--- NOTE | 2023-01-06 12:04 | Orthopedic Consultation ---
Date of Service January 06, 2023 Assessment & Plan (1) Fracture of fibula, distal, right, closed: (2) Fracture of tibia with fibula, left, closed: Plan 62-year-old active female with osteoporosis admitted with bilateral ankle fractures. Both ankles are stable pattern, that are amenable to nonoperative management. She can weight-bear as tolerated with a controlled active motion boot on the right. I agree with the splint for initial treatment and heel touch weightbearing on the left lower extremity. -Recommend PT/OT evaluation prior to discharge given the weightbearing difficulties -Pain management per primary team. I think regular, high-dose acetaminophen and ibuprofen with ice is reasonable -We discussed pain management with ice and elevation at home. -She should follow-up with me or an orthopedic surgeon within 1 to 2 weeks from discharge for repeat x-rays of both ankles. Likely, the left lower extremity can be transition to a controlled active motion boot as well at follow-up. History of Present Illness Reason for Consultation: Bilateral ankle fractures Requesting Physician: . Attending Physician: Armando Murphy MD 62-year-old female with a history of multiple medication allergies and osteoporosis reports that she fell down a 3 step elevation resulting in likely inversion ankle injuries. She had trouble walking. She was brought to the ER and admitted with bilateral ankle fractures. The left lower extremity was splinted. The right lower extremity appropriately was placed in a controlled active motion boot. She denies any significant ankle problems before. She lives in her own home with her spouse Allergies Allergy/AdvReac Type Severity Reaction Status Date / Time corn syrup Allergy Severe *dextrose Verified 01/05/23 23:17 --MIGRAINE/INTESTINAL PROBLEMS/ASTHMA SYMPTOMS latex Allergy Severe Anaphylaxis Verified 01/05/23 23:17 meperidine [From Demerol] Allergy Severe RASH/EXTREME Verified 01/05/23 23:17 MIGRAINE/THROAT CLOSES SOMETIMES morphine Allergy Severe RASH/EXTREME Verified 01/05/23 23:17 MIGRAINE/THROAT CLOSES SOMETIMES oxycodone Allergy Severe RASH/EXTREME Verified 01/05/23 23:17 MIGRAINE/THROAT CLOSES SOMETIMES polyethylene glycol Allergy Severe ANGIO Verified 01/05/23 23:17 EDEMA, BRONCHIAL SPASMS, HIVES [id number] Antimigraine Allergy Severe HIVES/THROAT Verified 01/05/23 23:17 Agents CLOSING dextrose Allergy Intermediate MIGRAINE/INTESTINAL Verified 01/05/23 23:17 PROBLEMS/ASTHMA SYMPTOMS midazolam [From Versed] Allergy Intermediate hives/RASH/ITCHING Verified 01/05/23 23:17 ALL OVER/SLOW TO WAKE UP mold Allergy Intermediate ASTHMA Verified 01/05/23 23:17 ATTACK nickel Allergy Intermediate ITCHING Verified 01/05/23 23:17 egg Allergy Abdominal Verified 01/06/23 05:39 Pain avocado AdvReac Intermediate INTESTINAL Verified 01/05/23 23:17 PROBLEMS fish derived AdvReac Intermediate INTESTINAL Verified 01/05/23 23:17 PROBLEMS soy AdvReac Intermediate INTESTINAL Verified 01/05/23 23:17 PROBLEMS venlafaxine [From Effexor] AdvReac Intermediate TROUBLE Verified 01/05/23 23:17 WALKING RUBBER Allergy Severe ASTHMA Uncoded 01/05/23 23:17 REACTION PLASTIC Allergy Mild SENSITIVE Uncoded 01/05/23 23:17 TO PLASTIC Home Medications Medication Instructions Recorded Confirmed Type Bone Builder 620 mg PO BID 04/21/21 01/05/23 History albuterol sulfate 90 mcg/actuation 1 inh inhalation QID PRN SHORT OF 04/21/21 01/05/23 History aerosol inhaler BREATH ascorbic acid (vitamin C) 100 mg 400 mg PO BID 04/21/21 01/05/23 History tablet (Vitamin C) epinephrine 0.3 mg/0.3 mL 0.3 mg IM Q4H PRN Allergic Reaction 04/21/21 01/05/23 History injection, auto-injector lactobacillus comb no.10 20 20,000 mmu cells PO QAM 04/21/21 01/05/23 History billion cell capsule (Probiotic) magnesium citrate 100 mg tablet 600 mg PO QPM 04/21/21 01/05/23 History multivitamin 1 tab PO QAM 04/21/21 01/05/23 History Vitamin D3 & K 1 drp sublingual QAM 07/29/21 01/05/23 History estradiol 10 mcg vaginal tablet 10 mcg vaginal 2XWK 04/19/22 01/05/23 History (Vagifem) beclomethasone dipropionate 80 1 inh inhalation BID PRN Shortness 01/05/23 01/05/23 History mcg/actuation HFA breath activated Of Breath Or Wheezing aerosol (Qvar RediHaler) Past Med/Surg History Medical History Asthma LAST USED RESCUE INHALER SPRING 2020 Eczema Food intolerance History of anemia History of depression HSIL (high grade squamous intraepithelial lesion) on Pap smear of cervix Hypoglycemia Migraine Multiple allergies Multiple chemical sensitivity syndrome Osteoporosis OTF III (vulvar intraepithelial neoplasia III) Surgical History Family history of reaction to anesthesia NAUSEA History of anesthesia reaction SEE ALLERGIES/SLOW TO WAKE UP History of bilateral tubal ligation History of colonoscopy History of herniorrhaphy INGUINAL History of skin surgery LOCAL EXCISION VULVA (PRE-CANCEROUS) History of tooth extraction Torticollis REPAIRED X 2 (RT SIDE OF NECK STIFFNESS) Family History Family/Other Breast cancer Mother CHF (congestive heart failure) Macular degeneration Asthma Hypertension Father Atrial fibrillation Prostate cancer Multiple myeloma Asthma Dyslipidemia Sister Asthma Other No significant family history Denies family history of Ovarian cancer Myocardial infarction Colorectal cancer Social History Smoking Status: Never smoker Age Started Using Tobacco: 13; Second Hand Exposure: No; Do You Dip or Chew Tobacco: No; Tobacco Cessation Education Requested by Patient: No Hx Alcohol Use: No Hx Substance Use: No Preferred Language: Portuguese Communication Ability: Effective Manager Of Compensation Required: No Beliefs That Will Affect Care: None marital status: Current Living Situation: Spouse current occupational status: retired Other Information That Helps Us Care for You: No Feels Safe at Home: Yes Safety Concerns: Feels Safe At This Time Childhood Exposure to Second-Hand Smoke: No Dental Care, Regularly: Yes Physical Activity Frequency: 3-4 Times per Week Seatbelt Use: always Sunscreen Use: Yes Assistive Devices: Glasses Review of Systems All systems reviewed & are unremarkable except as noted in HPI & below. Physical Exam RLE: No skin compromise. Well fit controlled active motion boot. Elevated appropriately. LLE: Standard posterior and stirrup ankle splint, that appears well fit. Neurovascular intact to the toes. Constitutional WD/WN, vitals as above Respiratory normal respiratory effort; no respiratory distress Cardiovascular Extremities: normal capillary refill; no edema Chest (Breasts) Chest: normal inspection of chest Skin no rashes, warm and dry Psychiatric A+Ox3, euthymic affect Results & Data Results & Data Laboratory Results . Diagnostic Findings Bilateral ankle radiographs were evaluated. The right ankle has an avulsion type fracture from the lateral aspect of the lateral malleolus. The ankle mortise is stable. The left ankle films show a stable pattern as well with a transversely oriented distal fibular fracture that is below the joint line. Mortise is stable. PG Care Time/CCT Total # of Minutes Spent Total Time Spent with Patient: Total time spent is greater than 50% in coordination of care (as documented) at patient's floor/unit and/or counseling patient: Coding Level of Care Code 95229 IN/OBS CONSULT LVL 4,60M Diagnoses Fracture of fibula, distal, right, closed S82.831A Fracture of tibia with fibula, left, closed S82.202A; S82.402A
[2023-01-06] MEDS ORDERED: ESTRADIOL 10 MCG PV SCH ×2 (14:00)
[2023-01-06] MEDS ORDERED: NON-FORMULARY MEDICATION (Magnesium Citrate 100 mg Tablet) PO SCH (21:00)
[2023-01-07] MEDS: ACETAMINOPHEN 325 MG TAB PO PRN ×2 (02:25→08:37)
[2023-01-07] MEDS: IBUPROFEN 200 MG TAB PO PRN ×3 (02:29→15:10)
[2023-01-07] MEDS: ASCORBIC ACID 500 MG TAB PO SCH (08:37)
[2023-01-07] MEDS: MULTIVITAMIN TAB PO SCH (08:37)
[2023-01-07] MEDS: ADVANCED PROBIOTIC 1250 MG CAPSULE PO SCH (08:37)
--- NOTE | 2023-01-07 09:32 | Discharge Summary ---
Date of Service January 07, 2023 Admission HPI Per Admitting Provider The patient is a 62-year-old female with past medical history including HSIL, osteoporosis, OTF 3, asthma, and multiple chemical sensitivity syndrome. The patient presents to the emergency department due to a mechanical fall in which she misjudged where she was on steps, and stepped off into a space where there were no steps, dropping 3 steps in height rolling her ankles and sustaining immediate pain bilateral ankles. X-rays in the emergency department revealed a left ankle distal tib/fib fracture, and right ankle distal fib fracture. Admission Exam Per Admitting Provider The patient is awake, alert and oriented 3, well developed and well nourished, normocephalic and atraumatic, lying in bed and in no acute distress. HEENT--PERRL, EOMI, mucous membranes and oropharynx dry. Neck--supple. No JVD. No bruits. Thyroid normal, trachea midline, no adenopathy. Heart--normal S1 and S2. No murmurs, rubs or gallops. Lungs--clear bilaterally, no respiratory distress, no accessory muscle use. Abdomen--normal bowel sounds and soft. Nontender. Nondistended, no hernias or masses, no organomegaly. Extremities--no cyanosis or clubbing. No edema. Dermatologic--normal skin turgor, normal color, no abnormal lymph nodes, no rash. Neurologic--cranial nerves II through XII grossly intact. Rheumatologic--lower extremity exam limited due to wrapping for stabilization Psychiatric--normal affect. Principal Diagnosis bilateral ankle fractures Discharge Exam Constitutional WD/WN, vitals as above Neck trachea midline, no thyromegaly Respiratory normal respiratory effort, lungs clear to auscultation Cardiovascular RRR, no murmur, no edema Gastrointestinal (Abdomen) normal bowel sounds, soft, nontender, no hepatosplenomegaly Musculoskeletal Walking boot right lower leg, temporary splint left leg with RENNY bandage intact sensation to toes with good capillary refill popliteal pulses +2 symmetric Neurologic PERRL, EOMI, accommodation nl, no face palsy, no dysarthria Psychiatric A+Ox3, euthymic affect Discharge Data Allergies Allergy/AdvReac Type Severity Reaction Status Date / Time corn syrup Allergy Severe *dextrose Verified 01/05/23 23:17 --MIGRAINE/INTESTINAL PROBLEMS/ASTHMA SYMPTOMS latex Allergy Severe Anaphylaxis Verified 01/05/23 23:17 meperidine [From Demerol] Allergy Severe RASH/EXTREME Verified 01/05/23 23:17 MIGRAINE/THROAT CLOSES SOMETIMES morphine Allergy Severe RASH/EXTREME Verified 01/05/23 23:17 MIGRAINE/THROAT CLOSES SOMETIMES oxycodone Allergy Severe RASH/EXTREME Verified 01/05/23 23:17 MIGRAINE/THROAT CLOSES SOMETIMES polyethylene glycol Allergy Severe ANGIO Verified 01/05/23 23:17 EDEMA, BRONCHIAL SPASMS, HIVES [id number] Antimigraine Allergy Severe HIVES/THROAT Verified 01/05/23 23:17 Agents CLOSING dextrose Allergy Intermediate MIGRAINE/INTESTINAL Verified 01/05/23 23:17 PROBLEMS/ASTHMA SYMPTOMS midazolam [From Versed] Allergy Intermediate hives/RASH/ITCHING Verified 01/05/23 23:17 ALL OVER/SLOW TO WAKE UP mold Allergy Intermediate ASTHMA Verified 01/05/23 23:17 ATTACK nickel Allergy Intermediate ITCHING Verified 01/05/23 23:17 egg Allergy Abdominal Verified 01/06/23 05:39 Pain avocado AdvReac Intermediate INTESTINAL Verified 01/05/23 23:17 PROBLEMS fish derived AdvReac Intermediate INTESTINAL Verified 01/05/23 23:17 PROBLEMS soy AdvReac Intermediate INTESTINAL Verified 01/05/23 23:17 PROBLEMS venlafaxine [From Effexor] AdvReac Intermediate TROUBLE Verified 01/05/23 23:17 WALKING RUBBER Allergy Severe ASTHMA Uncoded 01/05/23 23:17 REACTION PLASTIC Allergy Mild SENSITIVE Uncoded 01/05/23 23:17 TO PLASTIC Consultations 01/05/23 23:54 ED Decision to Admit Stat 01/06/23 03:46 Consult Orthopedic Surgery Routine Hospital Course (1) Fracture of tibia with fibula, left, closed: Closed fracture of right distal fibula/closed fracture of left distal fibula/fibula- Status post mechanical fall Orthopedic surgery recommends - Splint for initial treatment and heel touch weightbearing on the left lower extremity - Follow-up with an orthopedic surgeon within 1 to 2 weeks from discharge for repeat x-rays of both ankles. Likely, the left lower extremity can be transition to a controlled active motion boot as well at follow-up.. Acetaminophen 650 mg by mouth every 6 hours as needed for mild pain or fever Ibuprofen 400 mg p.o. 4 times daily as needed for moderate pain Patient to have continued PT at home (2) Fracture of fibula, distal, right, closed: Closed fracture of right distal fibula/closed fracture of left distal fibula/fibula- Status post mechanical fall Orthopedic surgery - recommended - Weight-bear as tolerated with a controlled active motion boot on the right - PT /OT evaluation before discharge Acetaminophen 650 mg by mouth every 6 hours as needed for mild pain or fever Ibuprofen 400 mg p.o. 4 times daily as needed for moderate pain (3) Osteoporosis: - Diagnosed in 2014, not currently on any medications 2/2 multiple chemical sensitivity syndrome - Last DXA 04/2021 - Lowest T score 3.1 L spine - Contiue calcium/vitamin D and regular weight bearing exercises, when fractures healed (4) Multiple chemical sensitivity syndrome: - Patient follows with Dr Biswas - Patient's pain is managable with Tylenol and IBU (5) Asthma: - stable - Continue ICS Qvar inhaler, and prn albuterol (6) OTF III (vulvar intraepithelial neoplasia III): Patient follows with [facility] oncology Dr Mendoza 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 was treated with 5FU Pap smear with HPV-16, ASCUS and colposcopy 06/2022 MENG I - endometrial bx focal squamous atypia Atrophic vaginitis - Vagifem weekly Total Time Total Time Spent Total Time Spent (In Minutes): 40 Discharge Plan Discharge Items Patient Disposition: Home - Home Health Services Reason For Visit: B/L ANKLE FRACTURE Discharge Diagnosis: Bilateral ankle fracture Condition on Discharge: Good Activity: Per Instructions section Lifting: None Weightbearing: Left partial and Right weightbearing Non-emergency contact: Primary Care Provider Call non-emergency contact if: you have any medication questions Follow-up/Referrals: Gus Reilly MD [Surgeon] - (1 to 2 weeks) Bruna Amor MD [Primary Care Provider] - 01/14/23 3:00 pm (APPOINTMENT WITH JEN) Diet: Regular Addtl Attending Provider Instructions: You were admitted with bilateral ankle fractures. See below for orthopedic recommendations and instructions. You will continue to use Tylenol and Ibuprofen as needed for the pain. Discussed to take Ibuprofen with food. Addtl Admissions Assistant Provider Instructions: Orthopedic discharge instructions: Right ankle: Weight-bear as tolerated in the controlled active motion boot. Walker assist device as needed. Left ankle: Leave splint in place and keep clean and dry until follow-up. Okay to place the heel on the floor for balance. Consider a knee scooter to offload the left lower extremity for longer distances. Pain: Recommend acetaminophen and ibuprofen at high doses in regular intervals. Ice and elevate regularly. Fracture pain should improve significantly in 1 to 2 weeks. Follow-up in 1-2 weeks for repeat x-rays and to evaluate progress. Pending Studies at Discharge: No Stand-Alone Forms: My [facility] Medications and DC Order Prescriptions: New acetaminophen 325 mg Tablet 650 mg PO Q4H PRNQty: 0 0RF ibuprofen 200 mg Tablet 400 mg PO QID PRNQty: 0 0RF Continued multivitamin Tablet 1 tab PO QAM Vitamin C 100 mg Tablet 400 mg PO BID magnesium citrate 100 mg Tablet 600 mg PO QPM Patient Comments: WITH VITAMIN C Probiotic 20 billion cell Capsule 20,000 mmu cells PO QAM Bone Builder 620 mg PO BID Patient Comments: CALCIUM SUPPLEMENT epinephrine 0.3 mg/0.3 mL Auto-Injector 0.3 mg IM Q4H PRN (Reason: Allergic Reaction) albuterol sulfate 90 mcg/actuation Hfa Aerosol Inhaler 1 inh INHALATION QID PRN (Reason: SHORT OF BREATH) estradiol [Vagifem] 10 mcg tablet 10 mcg VAGINAL 2XWK Rx Instructions: SUNDAYS & WEDNESDAYS Qvar RediHaler 80 mcg/actuation Hfa Aerosol Breath Activated 1 inh INHALATION BID PRN (Reason: Shortness Of Breath Or Wheezing) Vitamin D3 & K 1 drp sublingual QAM Admission Data Admit Date/Time: 01/06/23 02:16 Attending Provider: Armando Murphy Admit Provider: Nixon Akins Primary Care Provider: Bruna Amor Other Providers: Olayinka Morales ; Armando Murphy ; Nixon Akins Coding Level of Care Code 36971 INP/OBS DISCH >30 MIN Diagnoses Fracture of tibia with fibula, left, closed S82.202A; S82.402A Encounter type: initial encounter Fracture of fibula, distal, right, closed S82.831A Encounter type: initial encounter Osteoporosis M81.0 Osteoporosis type: unspecified Multiple chemical sensitivity syndrome T78.40XA Asthma J45.909 OTF III (vulvar intraepithelial neoplasia III) D07.1 Time Spent (min) 40
[2023-01-09] MEDS ORDERED: ESTRADIOL 10 MCG PV SCH (09:00)
== END 2023-01-07 18:11 | disposition home or self-care (01) ==
LOC: 3E 19:52 → ED 19:52 → SUATTDRO 01-06 02:16 → 3E 01-06 04:13
DX: S82.831A Other fracture of upper and lower end of right fibula, initial encounter for closed fracture; S82.202A Unspecified fracture of shaft of left tibia, initial encounter for closed fracture; M81.0 Age-related osteoporosis without current pathological fracture; Z88.8 Allergy status to other drugs, medicaments and biological substances; Z88.5 Allergy status to narcotic agent; S82.441A Displaced spiral fracture of shaft of right fibula, initial encounter for closed fracture; Z91.018 Allergy to other foods; Z87.891 Personal history of nicotine dependence; W10.9XXA Fall (on) (from) unspecified stairs and steps, initial encounter; Z91.040 Latex allergy status; Z91.012 Allergy to eggs